=== PATIENT | female | born 1995 | race Two or more races ===

== ENCOUNTER 2025-09-24 18:54 | Observation (INO) | payer MEDICAID, OTHER ==
[~2025-09-24] VITALS: Ht 160 cm; Wt 77.1 kg
[2025-09-24] MEDS ORDERED: PREN-96 PO (20:13)
--- NOTE | 2025-09-24 20:39 | DVHDS2 ---
Physician Discharge Progress N Final Diagnosis: False labor Secondary Diagnosis: Multigravida Problems List: (1) 39 weeks gestation of (2) Irregular contractions (3) Multigravida (4) History of precipitous delivery Commentary: Commentary TRIAGE Subjective 30 y/o (3,0,0,3)IUP 39w2d EDC of 09/29/[address] to rule out labor. Stated that she was visiting family in the ED and wanted to check out. She reports normal movements, no LOF, BV or contractions, She denies, any urinary or vaginal symptom. Hx X3 Term FOB same partner from previous pregnancies Denies any complications with previous or current Stated GBS negative History of precipitous delivery two years ago Objective Alert and orientated Resp unlabored Appears uncomfortable Abdomen palpated soft and non tender Non Stress Test FHR baseline : 125 Variability: Moderate Accel's : 15 bpm X 15 bpm decel's: None noted Uterine: Palpated soft and non tender Contractions: Irregular and lasting 40-60 seconds Assessment (3,0,0,3)IUP 39w2d R/O labor SVE CX Closed Irregular contractions NST Reactive and Reassuring Plan EFM NST Reactive and Reassuring [place] (Patient defer) P.O hydration Patient desires to go home Reported want to see her OBGYN and will deliver at [facility] D/C to home in stable condition PTL/FKC/PRe-E Precautions given, verbalizes understanding. D/C to home Condition on Discharge: Stable Disposition: Home Discharge Instructions: Diet: Regular Activity: No Restrictions, As Tolerated Follow Up/Referral: Primary OBGYN Medications: N/A Follow Up Care: Discharge Statement: Discharge home Advised to increase water intake. Follow up with OB care Provider the soonest Keep all scheduled appointments; seek care sooner if needed 3rd trimester emergency S&S F[facility], labor & pre-eclampsia precautions reviewed with pt; advised to seek health care when possible. Discharge Care Plan Problem Pain Goals Pain relieved Know Disease Process Initiate lifestyle change Remain free of infection Instructions Take Rx medications See pt D/C handouts Risk factors Causes of fluid excess Causes of fluid loss Visit Coding OBGYN Date of Service: Sep 24, 2025 Billing Provider: DAVID BEY CNM S[employer]IOR DESIGN ENGINEERING SPECIALIST Common Visit Codes: [id number] CARE DISCHARGE, [id number] OBS CARE (HIGH) DAVID BEY [facility] 2024 20:39
== END 2025-09-24 20:25 | disposition home or self-care (01) ==
LOC: LDRP 18:54
PROVIDERS: ADMIT Obstetrics & Gynecology; ATTEND Obstetrics & Gynecology
DX: O47.1 False labor at or after 37 completed weeks of gestation (principal); O09.523 Supervision of elderly multigravida, third trimester; Z79.899 Other long term (current) drug therapy; Z3A.39 39 weeks gestation of pregnancy
CPT/HCPCS: 59025; 81002; 94760; A4649; G0378